=== PATIENT | female | born 1975 | race African-American/Black ===

== ENCOUNTER 2016-09-29 07:00 | Inpatient (IN) ==
--- NOTE | 2016-11-26 11:18 | EKG Report ---
Test Performed on : 11/26/2016 11:10:54 AM Test Reason : PAT Blood Pressure : / mmHG Vent. Rate : 073 BPM Atrial Rate : 073 BPM P-R Int : 180 ms QRS Dur : 078 ms QT Int : 380 ms P-R-T Axes : 037 048 036 degrees QTc Int : 418 ms Normal sinus rhythm. Cannot rule out Anterior infarct , age undetermined Abnormal ECG No previous ECGs available Confirmed by Dustin Lundberg MD ([id number]) on 11/28/2016 3:08:00 PM
[2016-11-26 11:30] LABS: URINE MICRO REVIEW NEEDED? NO; URINE SOURCE VOIDED
[2016-11-26 11:30] LABS: MANUAL DIFF NEEDED? NO
[2016-11-26 11:33] LABS: BASO% 0.5 % (0.0-0.8); EOS# 0.15 X1000 (0.0-0.7); EOS% 2.7 % (0.0-10.0); HEMOGLOBIN 12.9 g/dL (12.0-16.0); LYMPH# 1.86 X1000 (1.2-3.4); LYMPH% 32.9 % (20.5-51.1); MCH 27.7 PG (27-31); MCHC 33.9 g/dL (33-37); MCV 81.7 FL (81-99); MONO# 0.52 X1000 (0.11-0.59); MONO% 9.2 % (1.7-9.3); MPV 9.1 FL (7.4-10.4); NEUT% 54.7 % (42.2-75.2); PLT 304 X1000 (130-400); RBC 4.65 XMIL (4.2-5.4)
[2016-11-26 11:50] LABS: BILIRUBIN URINE NEGATIVE (NEGATIVE); BLOOD URINE NEGATIVE (NEGATIVE); COLOR YELLOW; GLUCOSE URINE NEGATIVE (NEGATIVE); LEUKOCYTES URINE NEGATIVE (NEGATIVE); NITRITE URINE NEGATIVE (NEGATIVE); PH URINE 6.5; PROTEIN URINE NEGATIVE (NEGATIVE); SP GRAVITY URINE 1.016; TURBIDITY URINE CLEAR (CLEAR); UROBILINOGEN URINE NORMAL (NORMAL)
[2016-11-26 11:51] LABS: UR EPITHELIAL CELLS <10 /HPF (<10); URINE BACTERIA NEGATIVE /HPF; URINE RBC <10 /HPF (<10); URINE WBC <10 /HPF (<10)
--- NOTE | 2016-11-30 12:36 | HISTORY AND PHYSICAL ---
HISTORY: Flakita is a 41-year-old black female, para 2, with a history of 2 vaginal deliveries, being admitted at this time for a total abdominal hysterectomy. Flakita has had a long-standing issue with her menstrual periods going back several years. She had discussed this with Dr. Law, while he was still in practice and relates that they remain extremely heavy for the entire 7 full days and sometimes a little bit longer going through double protection of tampons and pads and still at times, having accidents soiling her clothes and soiling the bed. She does have a known enlarged uterus about 10-week size, and she has decided at this point that she wants to move on in the direction of having the hysterectomy. She did indicate her desire to preserve the function of the ovaries if they do appear to be normal at the time of the surgery. We did discuss the likelihood of removing the fallopian tubes as part of the procedure. We discussed the nature of the procedure, the risk involved, the risk of anesthesia, other potential issues including, but not limited to injury to surrounding structures, infection, hemorrhage, and even . We discussed the usual length of hospitalization, the recuperation time at home, and the restrictions therein, and overall she feels well informed in regards to the total abdominal hysterectomy and had no further questions. PAST HISTORY: Significant for 2 vaginal deliveries. ALLERGIES: She has no known allergies. FAMILY HISTORY: Basically noncontributory. SOCIAL HISTORY: Basically noncontributory. REVIEW OF SYSTEMS: Basically noncontributory. MEDICATIONS: She does take lisinopril with hydrochlorothiazide and amlodipine. PHYSICAL EXAMINATION: GENERAL: Exam is that of a well-developed, well-nourished 41-year-old black female in no acute distress. VITAL SIGNS: Stable. Noted on the chart. HEENT: Unremarkable. NECK: Without nodes or thyromegaly. HEART: Regular without murmurs, gallops, or rubs. LUNGS: Clear. BREASTS: Without mass or tenderness. ABDOMEN: Soft, nontender. No masses. PELVIC: Normal external female genitalia. Vagina is clean. Cervix is a little bit hypertrophic. Uterus about 10-12 week size. No adnexal masses were felt. Rectovaginal is normal. EXTREMITIES: Without tenderness or edema. NEUROLOGICAL: Grossly normal. ASSESSMENT: 1. Abnormal uterine bleeding, mostly in the form of menorrhagia. 2. Enlarged uterus. PLAN: Total abdominal hysterectomy. cc: Richardson Huffman MD
[2016-12-01] MEDS ORDERED: PEPCID ONE (05:34)
[2016-12-01] MEDS ORDERED: KEFZOL 1 GM/D5W 1 GM/50 ML IVPB ONE (05:34)
[2016-12-01] MEDS ORDERED: LR 1,000 ML ONE ×2 (05:34→09:47)
[2016-12-01] MEDS ORDERED: TRANSDERM-SCOP ONE (05:34)
[2016-12-01] MEDS ORDERED: REGLAN ONE (05:34)
[2016-12-01] MEDS ORDERED: DIPRIVAN 1% ONE (06:33)
[2016-12-01] MEDS ORDERED: QUELICIN (DOSE) ONE (06:33)
[2016-12-01] MEDS ORDERED: XYLOCAINE-MPF 2% ONE (06:33)
[2016-12-01] MEDS ORDERED: ZEMURON ONE (06:33)
[2016-12-01] MEDS ORDERED: EXPAREL 1.3% ONE (06:46)
[2016-12-01] MEDS ORDERED: NAROPIN 0.5% ONE (06:46)
[2016-12-01] MEDS ORDERED: DECADRON ONE (07:04)
[2016-12-01] MEDS ORDERED: ZOFRAN ONE (07:04)
[2016-12-01] MEDS ORDERED: FENTANYL ONE (07:06)
[2016-12-01] MEDS ORDERED: ROBINUL ONE ×2 (07:59→08:16)
[2016-12-01] MEDS ORDERED: NEOSTIGMINE ONE ×2 (08:08→08:17)
[2016-12-01 08:13] LABS: URINE MICRO REVIEW NEEDED? NO; URINE SOURCE CATH
[2016-12-01] MEDS ORDERED: BREVIBLOC ONE (08:14)
[2016-12-01 08:19] LABS: BILIRUBIN URINE NEGATIVE (NEGATIVE); BLOOD URINE NEGATIVE (NEGATIVE); COLOR STRAW; GLUCOSE URINE NEGATIVE (NEGATIVE); LEUKOCYTES URINE NEGATIVE (NEGATIVE); NITRITE URINE NEGATIVE (NEGATIVE); PH URINE 7.5; PROTEIN URINE NEGATIVE (NEGATIVE); SP GRAVITY URINE 1.008; TURBIDITY URINE CLEAR (CLEAR); UROBILINOGEN URINE NORMAL (NORMAL)
[2016-12-01 08:21] LABS: UR EPITHELIAL CELLS <10 /HPF (<10); URINE BACTERIA NEGATIVE /HPF; URINE RBC <10 /HPF (<10); URINE WBC <10 /HPF (<10)
[2016-12-01] MEDS: DILAUDID ONE ×6 (09:28→10:20)
[2016-12-01] MEDS ORDERED: DILAUDID PCA VIAL ONE (09:46)
[2016-12-01] MEDS ORDERED: DILAUDID PCA VIAL IV PRN (09:58)
[2016-12-01] MEDS ORDERED: NARCAN 0.4 MG in LR 1,000 ML IV PRN (09:58)
[2016-12-01] MEDS ORDERED: NARCAN IV PRN (09:58)
[2016-12-01] MEDS ORDERED: LR 1,000 ML IV SCH (09:58)
[2016-12-01 10:20] LABS: HEMATOCRIT 25.6 % (37.0-47.0); HEMOGLOBIN 8.7 g/dL (12.0-16.0)
[2016-12-01] MEDS ORDERED: CLIMARA 0.05 MG/24 HR PATCH TD ONE (10:48)
[2016-12-01] MEDS ORDERED: NORCO-10 PO PRN (10:48)
[2016-12-01] MEDS ORDERED: BLISTEX MEDICATED BERRY LIP BALM TOP ONE (11:23)
[2016-12-01] MEDS: PERIDEX MT SCH ×2 (11:33→21:14)
[2016-12-01] MEDS: NORVASC PO SCH (11:34)
[2016-12-01] MEDS: LR 1,000 ML IV SCH ×3 (11:34→21:15)
[2016-12-01] MEDS: PRINZIDE 20/12.5MG PO SCH (11:34)
--- NOTE | 2016-12-01 14:15 | PROGRESS NOTE ---
DATE: 12/01/2016 SUBJECTIVE: Flakita is now approaching 5-hours status post subtotal abdominal hysterectomy with bilateral salpingo-oophorectomy and adhesiolysis. She is resting comfortably in her room with her family around her. She has adequate relief from her [employer]. OBJECTIVE: Vital signs are stable. Urine is clear and abundant. Dressing is clean and dry and extremities without any tenderness or edema. Discussion was held with Flakita and her family regarding our findings, and they understand that we will not know any definitive answers until the pathology report comes out. We talked about what our plans are for the remainder of the day and night and then what our plans will be tomorrow morning if all seems to be going as planned. She had no questions nor any needs for anything at this point. She is stable postop and will continue as ordered. cc: Richardson Huffman MD
[2016-12-01] MEDS: ZOFRAN IV PRN (14:42)
--- NOTE | 2016-12-01 14:57 | OPERATIVE NOTE ---
PROCEDURE DATE: 12/01/2016 SURGEON: Dr. Richardson Huffman. PATIENT ACCOUNT ANALYST: Dr. Oscar Herrera. ANESTHESIA: General, Dr. Yaron Chavez. PREOPERATIVE DIAGNOSIS: 1. Fibroid uterus. 2. Abnormal uterine bleeding, mostly in the form of menorrhagia. POSTOPERATIVE FINDINGS: 1. Compatible with the fibroid uterus and abnormal uterine bleeding in the form of menorrhagia, but a large, what appeared to be fundal, degenerating fibroid. 2. Pelvic adhesions. PROCEDURES PERFORMED: 1. Subtotal supracervical abdominal hysterectomy. 2. Bilateral salpingo-oophorectomy. 3. Adhesiolysis. OPERATIVE NOTE: Flakita was brought to the operating room, and after being placed upon the operating table and under general anesthesia, a Elias catheter was inserted and the usual prepping and draping were done. The abdomen was then entered, going through a Pfannenstiel incision in the customary manner, and once the peritoneum was opened and extended, the Kurt retractor was inserted and we were able to feel the uterus, which essentially felt to be mildly enlarged, about 10 weeks size, but she did have a large, what appeared to be degenerating fibroid off the fundal portion of the uterus towards the right side. The right ovary was adhesed in that area and there were also some adhesions in the left adnexa as well. We began by delivering the fibroid mass through the incision site. We had to mobilize a couple of smaller fibroids down and away in order to ultimately develop our reflected bladder peritoneum flap and in so doing, we were also being able to isolate the uterine vessels as well. We used the LigaSure to clamp, cauterize and transect the infundibulopelvic ligament on the right side. The ureter was deep to these structures. Once we released the blood supply to the right ovary, we were then able to further manipulate the fibroid mass up and away from the uterus where it had adhesed and then gained access to the round ligament, which was then clamped, cauterized and transected, and then we did the same exact procedure on the left side. However, initially we had hoped to be able to preserve that ovary after extirpating it away from the uterus by clamping, cauterizing and transecting the utero-ovarian ligament and tube and ultimately the round ligament. We were able to further develop the reflected anterior bladder flap. The fibroid mass did have a significant amount of bleeding and once we were able to gain isolation to the uterine vessels, they were clamped using Michelle clamps, transected, and suture ligated using 0 Polysorb, which we employed throughout. With the next bite on each side, we were able to complete the development of the uterine vessel pedicles and extirpate the uterine fundus and the large mass away to better to give us further visualization for the remainder of the procedure. We used moist lap packs to pack the bowel superiorly and out of the field of surgery. We then suctioned the pelvic cavity and inspected for any bleeding and continued on by working our way down the paracervical tissue, by clamping, transecting and suture-ligating the paracervical tissue. We used Michael clamps and continued using the 0 Polysorb. We did reach a point that we felt that the reason for her bleeding had been solved as far as removal of the fundus of the uterus and decided that should there be ever a need for any type of radiation therapy, that leaving the cervix in place might be the better choice. At that point, we decided to remove the remaining upper part of the cervix and we then sewed the angles and then oversewed the cervical stump from posterior to anterior to provide an oversewed remaining stump and to provide hemostasis as well. We did have some other bleeding points in that area. We had to place some transverse sutures across in front of the cervical stump to provide hemostasis there. Also. Along the bladder flap edge we had to use the electrocautery and a couple of other superficially placed sutures to provide hemostasis down in that area. In the end, we reinspected the left tube and ovary. The ovary did have a cyst that was bleeding and it did not appear to be prudent to leave that intact, and so we elected to go ahead to elevate intramuscular, isolate the infundibulopelvic ligament and then again using the LigaSure, we clamped, cauterized and transected the infundibulopelvic ligament, staying above the area of the ureters and ultimately removing the left tube and ovary. After so doing, we then inspected all of our pedicles. We did place some Gel-Foam down along the anterior portion of the cervical stump and under the bladder flap edge, and in the end confirmed good hemostasis for all of our pedicles. We did have a little bit of oozing from the right infundibulopelvic, and we placed 2 sutures to control that oozing, again staying up and away from the ureters, and those structures were palpated at the end of the procedure to assure that they were intact and appeared to be so. Once we then inspected, removed any remaining debris, we then removed the moist lap packs as well as the self-retaining Shamrock retractor and then began closure of the abdominal incision, first by a running 0 Polysorb to close the peritoneum. An oozing point along the pyramidalis muscle we had to place a [id number] style stitch and cauterize some subfascial bleeders and then the fascia was run back together using 2 separate strands of #1 Polysorb, one from the right hand angle over to the midpoint and then the other from the left-hand angle back over to the midpoint. The subcutaneous layer was then controlled hemostatically with the electrocautery. The skin edges were brought together with a surgical stapler. The incision was cleaned and was covered with a sterile dry gauze pressure dressing, and at that point, Dr. Chavez came back in to perform the TAP block. It should be noted that our estimated blood loss was about 1500 mL. The urine remained clear and abundant throughout. Having tolerated procedure well, Flakita was then awakened and transferred to the stretcher and to the recovery room in stable condition. It should be noted that postoperative, hemoglobin and hematocrit were 8.7 and 25.6 respectively and those will be checked again tomorrow morning at approximately 6:00 a.m. It should also be noted that I did speak with her family out in the waiting area to let them know how the procedure had gone, that we did have some slight concern over the mass. We felt like it was likely a degenerated fibroid, but that it would be, along with everything else that was removed, sent to Pathology for further exam and we would be able to address that more in depth with them upon the return of those reports. Otherwise, they were pleased with the report, felt well informed and had no further questions. cc: MD Oscar Suárez MD
[2016-12-01] MEDS ORDERED: PHENERGAN IV PRN (17:51)
[2016-12-01] MEDS ORDERED: SODIUM CHLORIDE 0.9% 10 ML ONE (17:58)
[2016-12-02] MEDS: LR 1,000 ML IV SCH ×2 (02:31→05:10)
[2016-12-02 05:30] LABS: MANUAL DIFF NEEDED? NO
[2016-12-02 05:40] LABS: EOS# 0.02 X1000 (0.0-0.7); EOS% 0.3 % (0.0-10.0); HEMATOCRIT 21.6 % (37.0-47.0); HEMOGLOBIN 7.2 g/dL (12.0-16.0); IMM GRAN# 0.03 X1000 (0.0-0.04); IMM GRAN% 0.4 % (0.0-0.5); LYMPH# 1.16 X1000 (1.2-3.4); LYMPH% 15.2 % (20.5-51.1); MCH 27.8 PG (27-31); MCHC 33.3 g/dL (33-37); MCV 83.4 FL (81-99); MONO# 0.88 X1000 (0.11-0.59); MONO% 11.5 % (1.7-9.3); MPV 9.4 FL (7.4-10.4); NEUT% 72.6 % (42.2-75.2); PLT 193 X1000 (130-400); RBC 2.59 XMIL (4.2-5.4)
[2016-12-02] MEDS ORDERED: SALINE LOCK IV FLUID XX ONE (06:37)
[2016-12-02 07:32] VITALS: BP 103/51
[2016-12-02] MEDS: PRINZIDE 20/12.5MG PO SCH (08:08)
[2016-12-02] MEDS: NORVASC PO SCH (08:08)
[2016-12-02] MEDS: PERIDEX MT SCH (08:09)
--- NOTE | 2016-12-02 09:20 | PROGRESS NOTE ---
DATE: 12/02/2016 SUBJECTIVE: Flakita is now just over 24 hours status post supracervical hysterectomy with BSO and adhesiolysis. She had a reasonably restful night and has had stable vital signs. Has remained afebrile. Excellent urine output and the Elias catheter has been removed, but she has not so far been able to void since it has been removed. The dressing is dry. PLAN: To remove the dressing about mid day today. She will be increased to solid food for breakfast, begin to ambulate and we will see how things progress along this morning as far as whether she may be a candidate for discharge to home later today. Her blood count hematocrit was 21%, slightly down from her postop hematocrit yesterday, but stable and she is not having any particular symptoms regarding the postoperative anemia. We will continue as ordered and revisit her around lunchtime today to see how things are progressing. cc: Richardson Huffman MD
[2016-12-02] MEDS: ZOFRAN IV PRN (13:11)
--- NOTE | 2016-12-02 14:11 | DISCHARGE SUMMARY ---
ADMISSION DATE: 12/01/2016 DISCHARGE DATE: 12/02/2016 HOSPITAL COURSE: Flakita is now over 24 hours status post supracervical subtotal hysterectomy with bilateral salpingo-oophorectomy and adhesiolysis. This morning, she has been able to ambulate in the room and void. She has also been able to consume solid food without nausea and consume plenty of liquids. She did relate that the [place] made her a little bit nauseous and, in view of that, we will give her a prescription for Demerol 50 mg, #36, to take 1 every 4-6 hours as needed for pain along with Phenergan 25 mg, #36, to take 1/2 to 1 tab every 4-6 hours as needed for pain, and she will take those together. She does feel that she is ready to be discharged to home. She remains afebrile with stable vital signs. We removed the dressing. The incision is clean and dry. We went over instructions in regards to incision care. Also, in regards to lifting, driving, and intimacy, and she feels well informed in all aspects of being discharged to the care of her family. She does have good family support. Plans are made also for her to call the office to schedule a postop check for next Wednesday to come in and have daisy removed and Steri-Strips applied and her first postop visit. Again, she is stable postop and will be discharged to home today with the aforementioned medications and instructions, and she knows to call should she have any concerns along the way. cc: Richardson Huffman MD
== END 2016-12-02 13:35 | disposition home or self-care (01) ==
LOC: SURHOLD 12-01 04:48 → 4N 12-01 09:14
PROVIDERS: ADMIT Obstetrics & Gynecology; ATTEND Obstetrics & Gynecology